=== PATIENT | male | born 1990 | race Caucasian/White ===

== ENCOUNTER 2020-01-27 21:42 | Emergency (ER) | payer OTHER, SELFPAY ==
[~2020-01-27] VITALS: Ht 175.3 cm; Wt 81.6 kg
[2020-01-27 21:44] VITALS: Ht 175.3 cm; Wt 81.6 kg
[2020-01-27 23:03] LABS: BASOPHIL % 0.1 % (0-2); PLATELET COUNT 163 x10^3mcL (130-400); RED CELL DISTRIBUTION WIDTH 12.4 % (11.5-14.5)
[2020-01-27 23:28] LABS: ALBUMIN 3.5 g/dL (3.4-5.0); ALKALINE PHOSPHATASE 53 U/L (46-116); ALT/SGPT 44 U/L (16-63); AST/SGOT 43 U/L (15-37); BILIRUBIN TOTAL 0.5 mg/dL (0.20-1.00); CALCIUM 8.5 mg/dL (8.5-10.1); CARBON DIOXIDE 23.9 mmol/L (21-32); CHLORIDE SERUM 100 mmol/L (98-107); CREATININE SERUM 1.1 mg/dL (0.7-1.3); GFR1 > 60 mL/min; GLUCOSE SERUM 118 mg/dL (74-106); POTASSIUM SERUM 3.6 mmol/L (3.5-5.1); SODIUM SERUM 135 mmol/L (136-145); TOTAL PROTEIN, SERUM 7.6 g/dL (6.4-8.2)
[2020-01-28 01:15] VITALS: BP 102/67
== END 2020-01-28 01:15 | disposition home or self-care (01) ==
LOC: ED 21:42
PROVIDERS: Emergency Medicine
DX: U07.1 COVID-19 (principal); J40 Bronchitis, not specified as acute or chronic; R07.89 Other chest pain; R19.7 Diarrhea, unspecified
CPT/HCPCS: 87804; J2405; J7030; U0003